=== PATIENT | female | born 1995 | race Asian ===

== ENCOUNTER 2022-09-16 09:41 | Emergency (ER) | payer OTHER ==
[2022-09-16 09:58] LABS: APPEARANCE,URINE SLT CLOUDY; BILIRUBIN,URINE NEGATIVE (NEGATIVE); COLOR,URINE YELLOW; GLUCOSE,URINE NEGATIVE (NEGATIVE); KETONES,URINE NEGATIVE (NEGATIVE); LEUKOCYTE ESTERASE,URINE NEGATIVE (NEGATIVE); NITRITE,URINE NEGATIVE (NEGATIVE); OCCULT BLOOD,URINE LARGE (NEGATIVE); PH,URINE 5.5 (5.0-8.0); PROTEIN,URINE NEGATIVE (NEGATIVE); UROBILINOGEN,URINE 0.2 EU/dL (<2.0)
[2022-09-16 10:06] LABS: BACTERIA,URINE FEW (NEGATIVE); EPITHELIAL CELLS,URINE OCCASIONAL (NONE-FEW); RBC,URINE 40-50 (0-2/HPF); WBC,URINE 0-2 (0-5/HPF)
== END 2022-09-16 10:18 | disposition home or self-care (01) ==
LOC: MW.ED 09:41
DX: M43.6 Torticollis (principal); Z32.02 Encounter for pregnancy test, result negative
CPT/HCPCS: 81001; 81025; 99283

== ENCOUNTER 2022-09-17 17:54 | Emergency (ER) | payer OTHER ==
[2022-09-17] MEDS ORDERED: Ondansetron 4 MG Tab.DIS PO ONE (18:52)
[2022-09-17] MEDS ORDERED: Acetaminophen/HYDROcodone 325-5 MG Tab PO ONE (18:53)
[2022-09-17] MEDS ORDERED: Lidocaine 4% 1 each Patch TOP STA (20:00)
== END 2022-09-17 21:01 | disposition home or self-care (01) ==
LOC: MW.ED 17:54
DX: S16.1XXA Strain of muscle, fascia and tendon at neck level, initial encounter (principal); X50.0XXA Overexertion from strenuous movement or load, initial encounter
CPT/HCPCS: 72040; 99283; A9270

== ENCOUNTER 2024-10-06 01:07 | Inpatient (IN) | payer MEDICAID ==
[2024-10-06] MEDS ORDERED: Sodium Chloride 0.9% 10 ML Syringe FLUSH PRN ×2 (01:27→03:41)
[2024-10-06] MEDS ORDERED: Sodium Chloride 0.9% 20 ML SDV IV PRN ×2 (01:27→03:41)
[2024-10-06] MEDS ORDERED: Sodium Chloride 0.9% 2.5 ML Syringe FLUSH PRN ×2 (01:27→03:41)
[2024-10-06] MEDS: Lactated Ringers 1,000 ML IV ONE (01:45)
[2024-10-06 02:00] LABS: HEMATOCRIT 31.7 % (37.0-47.0); HEMOGLOBIN 10.4 g/dL (12.0-16.0); MEAN CORPUSCULAR HEMOGLOBIN 25.9 pg (28.0-32.0); MEAN CORPUSCULAR HGB CONC 32.8 g/dL (32.0-36.0); MEAN CORPUSCULAR VOLUME 79.1 fL (83.0-99.0); MEAN PLATELET VOLUME 9.5 fL (9.4-12.3); PLATELET COUNT,PLT 167 K/uL (150-400); RED BLOOD CELL COUNT 4.01 M/uL (4.10-5.30); WHITE BLOOD CELL COUNT,WBC 10.67 K/uL (3.9-11.3)
[2024-10-06] MEDS: Lactated Ringers 1,000 ML IV SCH (03:30)
[2024-10-06] MEDS ORDERED: Oxytocin 10 Units/1 ML SDV IM PRN (03:41)
[2024-10-06] MEDS ORDERED: Methylergonovine 0.2 MG/1 ML Amp IM PRN (03:41)
[2024-10-06] MEDS ORDERED: ceFAZolin 2 GM in Water For Injection, Sterile 20 ML IVPUSH ONE (03:41)
[2024-10-06] MEDS ORDERED: Misoprostol 200 MCG Tab RECTAL PRN (03:41)
[2024-10-06] MEDS ORDERED: Citric Acid/Sodium Citrate Solution 30 ML Cup PO ONE (03:41)
[2024-10-06] MEDS ORDERED: Carboprost Tromethamine 250 MCG/1 mL Vial IM PRN (03:41)
[2024-10-06] MEDS ORDERED: Oxytocin/0.9 % Sodium Chloride 30 UNIT/500 ML BAG IV SCH (03:45)
[2024-10-06] MEDS ORDERED: ceFAZolin 2 GM Vial ONE (03:49)
[2024-10-06] MEDS ORDERED: Phenylephrine 1% 10 MG/ML SDV ONE (03:50)
[2024-10-06] MEDS ORDERED: Morphine PF 10 MG/10 ML SDV ONE (03:50)
[2024-10-06] MEDS ORDERED: fentaNYL 100 MCG/2 ML SDV ONE (03:50)
[2024-10-06] MEDS ORDERED: Ondansetron 4 MG/2 ML SDV ONE ×2 (03:50)
[2024-10-06] MEDS ORDERED: dexmedeTOMIDine HCl 200 MCG/2 ML SDV ONE (03:54)
[2024-10-06] MEDS ORDERED: ePHEDrine 50 MG/ML SDV ONE (03:55)
[2024-10-06] MEDS ORDERED: Ropivacaine 0.5% 5 MG/ML 30 ML SDV ONE (03:55)
[2024-10-06] MEDS ORDERED: Oxytocin 10 Units/1 ML SDV ONE (03:55)
[2024-10-06] MEDS ORDERED: Dexamethasone 4 MG/ML 5 ML MDV ONE (03:56)
[2024-10-06] MEDS ORDERED: Phenylephrine HCl In 0.9% NaCl 1 MG/10 ML Syringe IVPUSH PRN (04:15)
[2024-10-06] MEDS ORDERED: Morphine 2 MG/ML SYRINGE IVPUSH PRN (04:15)
[2024-10-06] MEDS ORDERED: fentaNYL 100 MCG/2 ML SDV IVPUSH PRN (04:15)
[2024-10-06] MEDS ORDERED: Albuterol 0.083% 2.5 MG/3 ML Neb Soln NEB PRN (04:15)
[2024-10-06] MEDS ORDERED: Metoclopramide 10 MG/2 ML SDV IVPUSH PRN (04:15)
[2024-10-06] MEDS ORDERED: HYDROmorphone 1 MG/ML Syringe IVPUSH PRN (04:15)
[2024-10-06] MEDS ORDERED: Nalbuphine 10 MG/1 ML Vial IVPUSH PRN (04:15)
[2024-10-06] MEDS ORDERED: Naloxone 0.4 MG/ML SDV IVPUSH PRN (04:15)
[2024-10-06] MEDS ORDERED: Ondansetron 4 MG/2 ML SDV IVPUSH PRN ×2 (04:15)
[2024-10-06] MEDS ORDERED: fentaNYL 50 MCG/ML SDV IVPUSH PRN (04:15)
[2024-10-06] MEDS ORDERED: Propofol 200 MG/20 ML SDV ONE (05:04)
[2024-10-06] MEDS: Ketorolac 30 MG/ML SDV IVPUSH SCH (10:36)
[2024-10-06] MEDS: diphenhydrAMINE 50 MG/ML SDV IVPUSH PRN (16:57)
[2024-10-06] MEDS: Docusate Sodium 100 MG Cap PO SCH (21:03)
[2024-10-07] MEDS: Acetaminophen/oxyCODONE 325-5 MG Tab PO PRN (08:18)
[2024-10-07] MEDS: Ibuprofen 800 MG Tab PO PRN (15:59)
== END 2024-10-07 17:08 | disposition home or self-care (01) | DRG 788 ==
LOC: MW.OB 01:07 → MW.OBCHECK 01:07 → MW.OB 03:41
PROVIDERS: ADMIT Obstetrics & Gynecology Gynecology; ATTEND Obstetrics & Gynecology
PROC: 10D00Z1 Extraction of Products of Conception, Low, Open Approach (ICD-10-PCS; principal; 2024-10-06 04:16)
DX: O34.211 Maternal care for low transverse scar from previous cesarean delivery (principal); Z3A.37 37 weeks gestation of pregnancy; Z37.0 Single live birth; Z79.899 Other long term (current) drug therapy
CPT/HCPCS: 01961; 36415; 59025; 59514; 64488; 85027; 86850; 86900; 86901; A9270-GY; J0690; J1100; J1200; J1885; J2274; J2371; J2405; J2590; J2704; J2795; J3010; J3490; J7120